=== PATIENT | female | born 1965 | race Caucasian/White ===

== ENCOUNTER 2024-07-09 06:36 | Outpatient (CLI) | payer BC ==
[2024-07-09] MEDS ORDERED: LIDOcaine 1%/PF 5ML 10 MG/ML VIAL ONE (06:41)
[2024-07-09] MEDS ORDERED: iohexol 300 MG/1 ML 50ml polymer ONE (06:41)
[2024-07-09] MEDS ORDERED: LIDOcaine 1% 30ml preserv. free vial ONE (06:42)
[2024-07-09] MEDS ORDERED: GADOTERATE MEGLUMINE 7.5 MMOL/15 ML VIAL IV ONE (06:42)
== END 2024-07-09 23:59 | disposition home or self-care (01) ==
LOC: RAD 06:36 → EDSTATUS 07:30 → RAD 23:59
PROVIDERS: ATTEND Pediatrics Sports Medicine
DX: M75.02 Adhesive capsulitis of left shoulder (principal); M75.32 Calcific tendinitis of left shoulder; M25.512 Pain in left shoulder; M75.52 Bursitis of left shoulder; M75.82 Other shoulder lesions, left shoulder
CPT/HCPCS: 23350; 73222; 77002; A9575; J3490; Q9967; 73040

== ENCOUNTER 2025-06-02 14:27 | Outpatient (CLI) | payer BC ==
--- NOTE | 2025-06-02 15:35 | RADIOLOGY REPORT ---
PROCEDURE: MR MRI HEAD Indication: TREMORS, COMPARISON: None TECHNIQUE: Multiplanar multisequence images of the brain are obtained. FINDINGS: There is no abnormal diffusion restriction. There is no intracranial hemorrhage. No extra-axial fluid collection, mass effect or midline shift. The ventricles are midline and normal in size. The cisterns are patent. Normal intracranial flow voids are preserved. No abnormal susceptibility signal. There is mild global cerebral volume loss. The sinuses and mastoids are well pneumatized. The visualized orbits are unremarkable. IMPRESSION: No acute cerebrovascular ischemia. Mild global cerebral volume loss.
== END 2025-06-02 23:59 | disposition home or self-care (01) ==
LOC: MRI02 14:27
PROVIDERS: ATTEND Family Medicine Sports Medicine
DX: R25.1 Tremor, unspecified (principal); M25.512 Pain in left shoulder; M75.32 Calcific tendinitis of left shoulder; M75.02 Adhesive capsulitis of left shoulder; M77.9 Enthesopathy, unspecified
CPT/HCPCS: 70551